=== PATIENT | female | born 1965 | race Caucasian/White ===

== ENCOUNTER 2020-06-14 12:25 | Outpatient (REF) | payer MEDICAID, SELFPAY | END 2020-06-14 12:26 | disposition home or self-care (01) | LOC: HO.LAB 12:25 | PROVIDERS: Visit Provider Internal Medicine | DX: Z20.822 Contact with and (suspected) exposure to COVID-19 (principal) | CPT/HCPCS: 36415; C9803; U0003 ==

== ENCOUNTER 2020-10-04 14:48 | Outpatient (REF) | payer MEDICAID, SELFPAY ==
--- NOTE | ~2020-10-04 | XR_ITS ---
EXAMINATION: CHEST 2 VIEWS CLINICAL INFORMATION: Hyperhidrosis. COMPARISON: None. TECHNIQUE: PA and lateral views of the chest were obtained. FINDINGS: The cardiac silhouette is not enlarged. The mediastinal and hilar contours are unremarkable. There are neither pleural effusions nor pneumothoraces. There are no consolidations. The osseous structures are unremarkable. XR/XR chest 2V IMPRESSION: No evidence for acute disease.
[2020-10-04 15:19] LABS: MANUAL DIFF FLAG NO
[2020-10-04 15:30] LABS: Basophils Percent Auto 0.6 % (0-2); Eosinophils Absolute Auto 0.1 X10*3/uL (0.0-0.4); Eosinophils Percent Auto 1.4 % (0-4); Hematocrit 44.1 % (37-47); Hemoglobin 14.6 g/dl (12.0-16.0); Imm Gran Abs Auto 0.02 X10*3/uL (0.00-0.03); Imm Gran Pct Auto 0.3 % (0.0-0.4); Lymphocytes Percent Auto 30.5 % (20-40); Mean Corpuscular HGB Conc 33.1 g/dl (31.0-35.0); Mean Corpuscular Hemoglobin 29.4 pg (27.0-33.0); Mean Corpuscular Volume 88.9 fL (80-98); Mean Platelet Volume 9.8 fL (9.4-12.3); Monocytes Absolute Auto 0.3 X10*3/uL (0.1-1.2); Monocytes Percent Auto 5.2 % (2-11); Neutrophils Absolute Auto 4.1 X10*3/uL (2.0-8.3); Platelet Count 228 X10*3/uL (160-400); Red Blood Count 4.96 X10*6/uL (4.20-5.50); Red Cell Distribution Width 12.5 % (11.0-16.0); White Blood Count 6.6 X10*3/uL (4.8-10.8)
[2020-10-04 15:43] LABS: C Reactive Protein 0.03 mg/dL (< or = 0.50)
[2020-10-04 16:06] LABS: Thyroid Stimulating Hormone 1.63 uIU/mL (0.32-4.0)
[2020-10-05 08:22] LABS: HIV AB/AG Nonreactive (Nonreactive)
[2020-10-06 19:46] LABS: TS Negative Control Passed; TS Panel A 0; TS Panel B 0; TS Positive Control Passed; TSpotTB Negative (SeeBelow)
== END 2020-10-04 14:49 | disposition home or self-care (01) ==
LOC: HO.LAB 14:48
PROVIDERS: PCP Internal Medicine Geriatric Medicine; Visit Provider Emergency Medicine
DX: R61 Generalized hyperhidrosis (principal); Z11.4 Encounter for screening for human immunodeficiency virus [HIV]
CPT/HCPCS: 36415; 71046; 84443; 85025; 86140; 86481; 87389

== ENCOUNTER 2023-04-04 10:13 | Outpatient (REF) | payer MEDICAID, SELFPAY ==
[2023-04-04 15:17] LABS: Alanine Aminotransferase 11 U/L (0-31); Albumin Level 4.2 g/dL (3.5-5.0); Alkaline Phosphatase 64 U/L (39-117); Anion Gap 11 (12-20); Aspartate Amino Transferase 16 U/L (5-31); Bilirubin Total 0.5 mg/dL (0.0-1.0); Blood Urea Nitrogen 9 mg/dL (9-16); Calcium 9.8 mg/dL (8.4-10.2); Carbon Dioxide 26 mmol/L (22-29); Chloride 109 mmol/L (96-108); Cholesterol 166 mg/dL (<200); Estimated Glomerular Filt Rate > 60; Glucose Fasting 85 mg/dL (60-99); HDL Cholesterol 75 mg/dL (>40); LDL Cholesterol Calculated 83 mg/dL (<100); Sodium 142 mmol/L (135-145); Total Protein 7.4 g/dL (6.5-8.0); Triglycerides 44 mg/dL (<150)
== END 2023-04-04 10:14 | disposition home or self-care (01) ==
LOC: HO.CHCLDS 10:13
PROVIDERS: Visit Provider Internal Medicine Geriatric Medicine
DX: Z00.00 Encounter for general adult medical examination without abnormal findings (principal); E78.00 Pure hypercholesterolemia, unspecified
CPT/HCPCS: 36415; 80053; 80061

== ENCOUNTER 2023-07-02 08:54 | Outpatient (REF) | payer MEDICAID, SELFPAY ==
--- NOTE | ~2023-07-02 | XR_ITS ---
EXAMINATION: XR KNEE, RIGHT CLINICAL INFORMATION: Posterior pain of right knee Patient states pain for months, no injury COMPARISON: None available. TECHNIQUE: Four views of the right knee. FINDINGS: No fracture or joint effusion. Alignment is anatomic. Joint spaces are maintained. No abnormal soft tissue calcification. Question soft tissue fullness posterior to the knee. XR/XR knee RT 4V IMPRESSION: No bony abnormality. Question soft tissue fullness posterior to the knee. Ultrasound of the popliteal fossa could be obtained.
[2023-07-02 11:33] LABS: MANUAL DIFF FLAG NO
[2023-07-02 12:03] LABS: Basophils Percent Auto 0.8 % (0-2); Eosinophils Absolute Auto 0.4 X10*3/uL (0.0-0.4); Eosinophils Percent Auto 7.2 % (0-4); Hematocrit 41.8 % (37.0-47.0); Hemoglobin 13.7 g/dl (12.0-16.0); Imm Gran Abs Auto 0.01 X10*3/uL (0.00-0.03); Imm Gran Pct Auto 0.2 % (0.0-0.4); Lymphocytes Absolute Auto 2.3 X10*3/uL (1.2-4.9); Lymphocytes Percent Auto 43.6 % (20-40); Mean Corpuscular HGB Conc 32.8 g/dl (31.0-35.0); Mean Corpuscular Hemoglobin 29.5 pg (27.0-33.0); Mean Corpuscular Volume 90.1 fL (80.0-98.0); Monocytes Absolute Auto 0.4 X10*3/uL (0.1-1.2); Monocytes Percent Auto 6.7 % (2-11); Neutrophils Absolute Auto 2.2 x10*3/uL (2.0-8.3); Neutrophils Percent Auto 41.5 % (45-73); Platelet Count 240 X10*3/uL (160-400); Red Blood Count 4.64 X10*6/uL (4.20-5.50); Red Cell Distribution Width 12.4 % (11.0-16.0); White Blood Count 5.3 X10*3/uL (4.8-10.8)
[2023-07-02 12:19] LABS: Alanine Aminotransferase 15 U/L (0-31); Albumin Level 4.2 g/dL (3.5-5.0); Alkaline Phosphatase 77 U/L (39-117); Anion Gap 10 (12-20); Aspartate Amino Transferase 17 U/L (5-31); Bilirubin Total 0.4 mg/dL (0.0-1.0); Blood Urea Nitrogen 16 mg/dL (9-16); Carbon Dioxide 29 mmol/L (22-29); Chloride 106 mmol/L (96-108); Estimated Glomerular Filt Rate > 60; Glucose Random 88 mg/dL (60-115); Potassium 4.1 mmol/L (3.3-5.1); Sodium 141 mmol/L (135-145); Total Protein 7.7 g/dL (6.5-8.0)
[2023-07-02 12:37] LABS: TSH reflex Free T4 3.81 uIU/mL (0.32-4.0)
== END 2023-07-02 08:55 | disposition home or self-care (01) ==
LOC: HO.HHCL 08:54
PROVIDERS: Visit Provider Internal Medicine Geriatric Medicine
DX: M25.561 Pain in right knee (principal); R63.4 Abnormal weight loss; F32.A Depression, unspecified; G89.29 Other chronic pain
CPT/HCPCS: 36415; 73564; 80053; 84443; 85025

== ENCOUNTER 2024-04-26 15:01 | Outpatient (REF) | payer MEDICAID, SELFPAY ==
--- NOTE | ~2024-04-26 | MR_ITS ---
EXAMINATION: MR BRAIN WITHOUT CONTRAST CLINICAL INFORMATION: Chronic persistent vertigo. COMPARISON: None available. TECHNIQUE: MRI of the brain was obtained using routine sequences without contrast. FINDINGS: No focal restricted diffusion is demonstrated to suggest acute or subacute cerebral ischemia. No evidence of acute or chronic hemorrhagic products on heme-sensitive imaging. Scattered periventricular and deep white matter T2 FLAIR hyperintensities consistent with mild underlying microangiopathy. Proportional prominence of the ventricles and sulcal spaces without evidence of obstructive hydrocephalus. No abnormal mass effect. No midline shift. Normal appearance of the pituitary gland. Normal positioning of the cerebellar tonsils. Normal arterial and venous vascular flow voids are present. Normal, homogeneous marrow signal. Mucous retention cysts within the right maxillary sinus. Mild mucosal thickening of the paranasal sinuses. Trace right-sided mastoid effusion. No signal abnormalities within the left-sided mastoid. Maintained normal T2 signal within the labyrinthine structures. MR/MR head/brain wo con IMPRESSION: 1. No acute intracranial abnormalities. 2. Mild underlying microangiopathy and generalized cerebral volume loss. Electronically signed by: Mert Pedro DO 05/21/2024 07:45 AM EST
== END 2024-04-26 15:02 | disposition home or self-care (01) ==
LOC: HO.MRI 15:01
PROVIDERS: PCP Internal Medicine Geriatric Medicine; Visit Provider Internal Medicine
DX: R42 Dizziness and giddiness (principal)
CPT/HCPCS: 70551

== ENCOUNTER 2024-10-16 09:25 | Outpatient (REF) | payer MEDICAID, SELFPAY ==
--- OUTSIDE RECORDS SUMMARY | 2024-10-16 10:05 | XMS_ITS | Encounter Summary ---
Author Organization [employer] Address [address] [place] [address] Care Team Providers Care Steam Tender Name Role Phone Name, Marlon [place] Primary Care Provider [phone] Encounter Details Date Type Department Care Team (Late st Contact Info) Description 11/20/2022 Abstract [facility] [address] [place] [address] [phone] NameMarlon MD [address] [place] [phone] Social History Tobacco Use Types Packs/Day Years Used Date Smoking Tobacco: Never Passive Smoke Exposure: Never Smokeless Tobacco: Never PHQ-2 Answer Date Recorded Patient Health Questionnaire-2 Score 0 07/12/2022 Depression Answer Date Recorded Patient Health Questionnaire-2 Score 0 07/12/2022 Comments Unknown Sex and Gender Information Value Date Recorded Sex Assigned at Female 04/10/2022 10:18 AM EDT Legal Sex Female 10:18 AM EDT Gender Identity Female 04/10/2022 10:18 AM EDT Sexual Orientation Straight 04/10/2022 10 :18 AM EDT documented as of this encounter Plan of Treatment Upcoming Encounters Date Type Department Care Team (Late st Contact Info) Description 10/29/2024 3:00 PM EDT Office Visit [facility] D[facility] [address] [place] [address] [phone] Kemi Tucker 02/02/2025 2:30 PM EDT Office Visit [facility] [address] [place] [address] [phone] Marlon Tsai MD [address] [place] [address] [phone] documented as of this encounter Procedures Procedure Name Priority Date/Time Associated Diagnosis Comments HM COLONOSCOPY Routine 03/02/2015 3:30 PM EDT documented in this encounter Results * Hm Colonoscopy (03/02/2015 3:30 PM EDT) Colonoscopy Normal Normal Narrative Jimmy Medellinba - 03/02/2015 3:30 PM EDT Recommended 10 year follow up us Historical Provider HEALTH MAINTENANCE Final Result documented in this encounter Visit Diagnoses Not on filedocumented in this encounter Care Teams Steam Tender Relationship Specialty Start Date End Date Name, MD Marlon [address] [place] [address] PCP - General Family Medicine 09/21/15 documented as of this encounter
--- OUTSIDE RECORDS SUMMARY | 2024-10-16 10:05 | XMS_ITS | Encounter Summary ---
Author Organization [employer] Address [address] [facility] [address] [place] [address] Care Team Providers Care Log Sorter Name Role Phone Name, Marlon [place] Primary Care Provider [phone] Reason for Visit * Reason Onset Date Comments Nurse Triage 09/22/2024 Encounter Details Date Type Department Care Team ([facility] st Contact Info) Description 09/22/2024 Telephone [facility] [address] [place], [place] [phone] Name, MD Marlon [address] [place] [address] Nurse Triage Social History Tobacco Use Types Packs/Day Years Used Date Smoking Tobacco: Former Cigarettes Passive Smoke Exposure: Past Smokeless Tobacco: Former Alcohol Use Standard Drinks/Week Comments Never 0 (1 standard drink = 0.6 oz pur e alcohol) PHQ-2 Answer Date Recorded Patient Health Questionnaire-2 Score 0 07/12/2022 Housing Stability Answer Date Recorded What is your housing situation today? I have jeffrey stevenson 06/03/[address] you li ve. Do you have problems with any of the following? None of the above 06/03/2024 Food Insecurity Answer Date Recorded Within the past 12 months, y ou worried that your food would run out before you got money to buy more: Never True 06/03/2024 Within the past 12 months,th e food you bought just didn't last and you didn't have enough money to get more: Never True Transportation Answer Date Recorded In the past 12 months, has l ack of transportation kept you from medical appts, meetings, work or from getting things needed for daily living? No 06/03/2024 Utilities Answer Date Recorded In the past 12 months, has t he electric, gas, oil or water company threatened to shut off services in your home? No 06/03/2024 Depression Answer Date Recorded Patient Health Questionnaire-2 Score 0 07/12/2022 Internet Access Answer Date Recorded Internet Access Q1 Yes 06/03/2024 Internet Access Q2 Not on file 06/03/2024 Comments Unknown Sex and Gender Information Value Date Recorded Sex Assigned at Female 04/10/2022 10:18 AM EDT Legal Sex Female 10:18 AM EDT Gender Identity Female 04/10/2022 10:18 AM EDT Sexual Orientation Straight 04/10/2022 10 :18 AM EDT documented as of this encounter Miscellaneous Notes * Telephone Encounter - Madisyn Mohamud RN - 09/22/2024 3:28 PM EDT Triage call Pt reports bilateral leg pain and some cramping in the calf and galicia areas and the bottoms of bilateral feet. Pt reports has not been going to the gym for 2 weeks now. Denies injury. Pt is able to ambulate but, must sit down often due to pain. Pt has taken tylenol which helps to relievesome of the pain. Pt has also used Bengay ointment which eases some of the discomfort. Pt denies numbness or a swelling/redness along vein path. Pt does report a small area of swelling on galicia right lower leg. ASK apt with [employer] [facility] 09/26/24 @ 145pm. Insurance is verified as active prior to booking. Pt agrees with disposition. Protocol Used: Leg Pain (Adult) Protocol-Based Disposition: See in Office or Video Visit within 3 Days Video visit not offered Positive Triage Question: * Moderate pain (e.g., interferes with normal activities, limping) and present > 3 days * All higher-acuity triage questions were negative Care Advice Discussed: * Reassurance and Education - Leg Pain * Pain Medicines * Pain Medicines - Extra Notes and Warnings * Reasons To Call Back - Moderate pain (such as limping) lasts more than 3 days - Mild pain lasts more than 7 days - Signs of infection occur (such as spreading redness, warmth, fever) - You become worse * Use a Cold Pack for Pain * Use Heat After 48 Hours for Pain * Telephone Encounter - Sherri Diaz - 09/22/2024 2:51 PM EDT Symptom: Leg Pain - Not From Injury Outcome: Schedule an urgent appointment (within 1 hour) or talk to a nurse or provider soon Reason: Trouble walking The caller accepted this outcome. Contact pt at [phone] documented in this encounter Plan of Treatment Upcoming Encounters Date Type Department Care Team (Late st Contact Info) Description 10/29/2024 3:00 PM EDT Office Visit [facility] [address] [place] [address] Kemi Tucker 02/02/2025 2:30 PM EDT Office Visit [facility] [address] [place] [address] Name, MD Marlon [address] [place] [address] documented as of this encounter Visit Diagnoses Not on filedocumented in this encounter Care Teams Log Sorter Relationship Specialty Start Date End Date Marlon Tsai MD [address] [place] [phone] PCP - General Family Medicine 09/21/15 documented as of this encounter
--- OUTSIDE RECORDS SUMMARY | 2024-10-16 10:05 | XMS_ITS | Encounter Summary ---
Author Organization [employer] Address [address] [facility] [address] [place] [address] Care Team Providers Care Ingot Passer Name Role Phone Name, Marlon [place] Primary Care Provider Encounter Details Date Type Department Care Team (Latest Contact Info) Description 10/13/2024 Travel Social History Tobacco Use Types Packs/Day Years Used Date Smoking Tobacco: Former Cigarettes Passive Smoke Exposure: Past Smokeless Tobacco: Former Alcohol Use Standard Drinks/Week Comments Never 0 (1 standard drink = 0.6 oz pur e alcohol) Depression Answer Date Recorded Patient Health Questionnaire-9 Score 4 10/13/2024 Patient Health Questionnaire-9 Score 4 10/13/2024 Last PHQ-9: Questionnaire Data Not on file 0 10/13/2024 Housing Stability Answer Date Recorded What is [...] Answer Date Recorded Patient Health Questionnaire-2 Score 2 10/13/2024 Internet Access Answer Date Recorded Internet Access [...] Description 10/29/2024 3:00 PM EDT Office Visit [facility] [address] [place] [address] Kemi Tucker 02/02/2025 2:30 PM EDT Office Visit [facility] [address] [place] [address] Name, MD Marlon [address] [place] [address] documented as of this encounter Visit Diagnoses Not on filedocumented in this encounter Additional Health Concerns Assessment Noted Time PHQ-9 Depression Total Score: 4 10/14/19 25 3:02 PM EDT documented as of this encounter Care Teams Ingot Passer Relationship Specialty Start Date End Date NameMarlon MD [address] [place] [phone] PCP - General Family Medicine 09/21/15 documented as of this encounter
--- OUTSIDE RECORDS SUMMARY | 2024-10-16 10:05 | XMS_ITS | Clinical Summary ---
Author Organization [employer] Address [address] [facility] [address] [place] [address] Care Team Providers Care Graphic Illustrator Name Role Phone Name, Marlon [place] Primary Care Provider [phone] Allergies Active Allergy Reactions Criticality Noted Date Comments Ibuprofen Hives 06/28/2006 Other reaction(s): swollen face swelling of face Medications albuterol 108 (90 Base) MCG/ACT inhaler Inhale 2 puffs every 4 (four) hours. As needed for wheezing 2 Active gabapentin (Neurontin) 100 MG capsule Take 1 capsule by mouth at bed time. 1 Active atorvastatin (Lipitor) 20 MG tabletIndication s:High cholesterol TAKE 1 TABLET BY MOUTH EVERY DAY 90 tablet 1 3 Active PARoxetine (Paxil) 30 MG tablet Take 30 mg by mouth in the morning. 3 Active chlorhexidine (Peridex) 0.12 % solution Swish 15 mL morning and night for 1 minute. Spit, do not swallow. Do not eat or drink for 30 minutes following use. 473 mL 4 Active meclizine (Antivert) 25 MG tabletIndication s:Vertigo Take 1 tablet (25 mg) by mouth if needed in the morning, at noon, and at bedtime for dizziness. 60 tablet 4 Active Active Problems Problem Noted Date Diagnosed Date Vertigo 03/11/2024 Assessment & Plan (03/11/2024 12:57 PM EDT): Pt of Dr. Tsai here for a sick visit with c/o acute on chronic vertigo. She reports chronic vertigo. Patient reports she has taken medication for vertigo since she was 35 years old. This time around patient states, her vertigo is not goinf away, now for > 3 weeks. Also c/o associated headaches. Of note patient had a CT of her brain 08/22/2018 that showed: No acute intracranial hemorrhage. On exam today, She has an abnormal tandem walk Plan: PT eval for BPV, Refill her script for Meclizine Given her abnormal tandem walk and association with headaches will proceed with an MRI of brain. Patient to follow up with PCP after testing Acute periodontal abscess 12/26/2023 Symptomatic apical periodontitis 12/04/2023 Class 1 obesity 11/15/2023 Pain of breast 03/23/2023 03/23/2023 Pharyngitis 03/23/2023 03/23/2023 Trochanteric bursitis of right hip 03/23/2023 03/23/2023 High cholesterol 07/12/2022 Restless legs 06/13/2022 Benign paroxysmal positional vertigo 10/25/2015 03/23/2023 Allergic rhinitis 09/21/2015 Asthma 09/21/2015 Renal calculus or stone 08/26/2013 03/23/20 23 Breast lump 11/17/2008 Overview (03/23/2023): Benign. Recurrent problem for the patient that has required drainage multiple times. She follows now the breast Center at [facility]. She was recommended fish oil/vitamin D. Obesity 11/17/2008 03/23/2023 Migraine 05/28/2008 03/23/2023 Overview (03/23/2023): Partial complex seizures?. Accroding to the neurologist notes the patient is likely having basilar migaines, she had a normal 24h EEG. See neurologist in [facility]. Dr. Дмитрий Aguilar III. Cervicalgia 10/18/2006 03/23/2023 Lumbago 10/18/2006 03/23/2023 Depressive disorder 06/28/2006 Encounters Date Type Department Care Team Description 10/13/2024 2:30 PM EDT Office Visit [facility] [address] [place] [address] Marlon Tsai MD High cholesterol (Primary Dx); Screening for colon cancer; Encounter for screening mammogram for malignant neoplasm of breast; Pain of foot, unspecified laterality 10/13/2024 Travel 09/26/2024 Telephone [facility] [address] [place] [address] Brandi Avery NP 09/22/2024 Telephone [facility] [address] [place] [address] Ally Graves MA Chart Prep 09/22/2024 Telephone [facility] [address] [place] [address] Marlon Tsai MD Nurse Triage 08/22/2024 Population Health Risk Score [facility] () [address] [phone] Provider, Population Health Generic from Last 3 Months Immunizations Name Administration Dates Next Due Influenza injectable quadrivalent preservative f ree 03/23/2023 Influenza, IIV3, injectable 06/13/2022, 7 PPD Test 12/27/2010 TD (adult), 2 Lf tetanus tox oid, preservative free, adsorbed 06/28/2006 Td (adult) 06/28/2006 Tdap 03/23/2023,02/01/2012 Social History Tobacco Use Types Packs/Day Years Used Date Smoking Tobacco: Former Cigarettes Passive Smoke Exposure: Past Smokeless Tobacco: Former Tobacco Cessation:Counseling Given: Not Answered Alcohol Use Standard Drinks/Week Comments Never 0 [...] Orientation Straight 04/10/2022 10 :18 AM EDT Last Filed Vital Signs Vital Sign Reading Time Taken Comments Blood Pressure 128/74 10/13/2024 2:40 PM EDT Pulse 60 10/13/2024 2:40 PM EDT Temperature 36.3 ??C (97.3 ??F) 10/13/2024 2:40 PM ED T Respiratory Rate 14 10/13/2024 2:40 PM EDT Oxygen Saturation 98% 10/13/2024 2:40 PM EDT Inhaled Oxygen Concentration - - Weight 80.6 kg (177 lb 9.6 oz) 10/13/2024 2:40 P M EDT Height 154.9 cm (5' 1 ) 10/13/2024 2:40 PM EDT Body Mass Index 33.56 10/13/2024 2:40 PM EDT Plan of Treatment Upcoming Encounters Date Type Department Care Team (Late st Contact Info) Description 10/29/2024 3:00 PM EDT Office Visit [facility] [address] [place] [address] Kemi Tucker 02/02/2025 2:30 PM EDT Office Visit [facility] [address] [place] [address] Name[place] [address] Health Maintenance Due Date Last Done Comments CT Colonography 1965 Dental Oral Exam 1965 Dental Prophylaxis 1965 FIT DNA/Cologuard 1965 FIT 1965 FOBT 1965 Sigmoidoscopy 1965 Hepatitis B Vaccines (1 of 3 - 19+ 3-dose series) 01/13/1984 Pneumococcal Vaccine: 50+ Years (1 of 2 - PCV) 01/13/1984 Zoster Vaccines (1 of 2) 2015 Mammogram 05/03/2023 05/03/2022 COVID-19 Vaccine ( - 2023- season) 2024 10/19/2020, 09/21/2020 Influenza Vaccine (#1) 2024 , 06/13/2022, 03/11/2007 Colonoscopy 03/02/2025 03/02/2015 Colorectal Cancer Screening 03/02/2025 Dental X-Ray: Bitewings 04/05/2025 04/04/2024, 02/19 SDOH Screening 06/03/2025 06/03/2024 Alcohol/Substance Use Screening 10/13/2025 10/13/2024 Depression Screening 10/13/2025 10/13/2024, 10/14/19 Tobacco Screening 10/13/2025 10/13/2024 Dental X-Ray: Full Mouth 12/04/2026 12/04/2023 Lipid Panel 04/04/2028 04/04/2023, 1011/2021, 11/29/2021 Cervical Cancer Screening 09/13/2028 HPV/Cotest 09/13/2028 12/25/2014 Pap Smear 09/13/2028 09/14/2023, 12/25/2014 DTaP/Tdap/Td Vaccines (3 - Td or Tdap) 03/23/2033 03/23/2023, 02/01/2012, 06/28/2006, Additional history exists RSV Patients and Patients Aged 60 years or older (1 - 1-dose 75+ series) 01/13/2040 Hepatitis C Screening Completed 01/22/2015 HIV Screening Completed 10/04/2020 HIB Vaccines Aged Out No longer eligi ble based on patient's age to complete this topic HPV Vaccines Aged Out No longer eligi ble based on patient's age to complete this topic Hepatitis A Vaccines Aged Out No long er eligible based on patient's age to complete this topic IPV Vaccines Aged Out No longer eligi ble based on patient's age to complete this topic Meningococcal Vaccine Aged Out No palma krista eligible based on patient's age to complete this topic RSV under 20 months Aged Out No longe r eligible based on patient's age to complete this topic Rotavirus Vaccines Aged Out No longer eligible based on patient's age to complete this topic Procedures Procedure Name Priority Date/Time Associated Diagnosis Comments BITEWING - SINGLE RADIOGRAPHIC IMAGE Routine 04/04/2024 2:00 PM EDT Full coverage crown needed for root canal-treated tooth PANORAMIC RADIOGRAPHIC IMAGE Routine 12/04/2023 1:00 PM EDT HM PAP/HPV Routine 09/14/2023 2:02 PM EDT LIPID PANEL, STANDARD Routine 04/04/2023 10:20 AM EDT PE (physical exam), annual High cholesterol MAMMOGRAPHY Routine 05/03/2022 [facility] HISTORICAL HIV AB/AG Routine 10/04/2020 3:10 PM EDT COLONOSCOPY Routine 03/02/2015 3:30 PM EDT HEPATITIS C ANTIBODY Routine 01/22/2015 PAP/HPV Routine 12/25/2014 from Last 3 Months or Most Recently Relevant to Health Maintenance Results * HM PAP/HPV (09/14/2023 2:02 PM EDT) Only the most recent of2 resultswithin the time period is included. us Historical Provider HEALTH MAINTENANCE Final Result * Lipid Panel, Standard (04/04/2023 10:20 AM EDT) Triglycerides 44 <150 mg/dL [facility] Comment:Desirable Triglyceri de: less than 150 mg/dLBorderline High Triglyceride 150-199 mg/dLHigh Triglyceride: 200-499 mg/dLVery High Triglyceride: greater than or equal to 5OO mg/dL Cholesterol 166 <200 mg/dL [facility] Comment:Desirable Cholestero l: less than 200 mg/dLBorderline High Cholesterol: 200-239 mg/dLHigh Cholesterol: greater than 239 mg/dL LDL Cholesterol Calculated 83 <100 mg/dL [facility] Comment:Desirable LDL: less than 100 mg/dLNear Optimal/Above Optimal LDL: 110- 129 mg/dLBorderline High LDL: 130-159 mg/dLHigh LDL: 160-189 mg/dLVery High LDL: greater than or equal to 190 mg/dL HDL Cholesterol 75 >40 mg/dL [facility] Comment:Desirable HDL: great er than 40 mg/dL Note: This HDL assay may give artificially low results in patients with liver disease. Blood Venous blood specimen / Unknown 04/04/2023 10:20 AM EDT 04/04/2023 2:55 PM EDT Marlon Tsai MD LAB BLOOD ORDERABLES Final Resul t [facility] [address] [place] [phone] * Mammography (05/03/2022) Mammogram performed Anatomical Region Laterality Modality Other [facility] Provider HEALTH MAINTENANCE Final Result * HIV AB/AG (10/04/2020 3:10 PM EDT) HIV AB/AG Nonreactive Nonreactive [facility] Comment: HIV-1 p24 Ag and/or HIV-1/HIV-2 Ab not detected. ?? A test result that is nonreactive does not exclude the possibility of exposure to or infection with HIV-1 and/or HIV-2. Nonreactive results in this assay for individuals with prior exposure to HIV-1 and/or HIV-2 may be due to antigen and antibody levels that are below the limit of detection of this assay. ?? The [employer] Back End Engineer HIV Ag/Ab Combo assay result and supplemental assay results should be interpreted in conjunction with the patient's clinical presentation, history and other laboratory results. ??If the results are inconsistent with clinical evidence, additional testing is suggested to confirm the result. 10/04/2020 3:10 PM EDT Galindo Pisano MD HISTORICAL/NON ORDERABLE LABS Fi nal Result [facility] [address] * Hm Colonoscopy (03/02/2015 3:30 PM EDT) Colonoscopy Normal Normal Narrative Lisa Medellin - 03/02/2015 3:30 PM EDT Recommended 10 year follow up Historical Provider HEALTH MAINTENANCE Final Result * Hepatitis C Antibody (01/22/2015) Hepatitis C Antibody Nonreactive Blood Marlon Tsai MD HEALTH MAINTENANCE Final Result from Last 3 Months or Most Recently Relevant to Health Maintenance Insurance * Guarantor: Janeen Richards Account Type Relation to Patient Date of Phone Billing Address Personal/Family Self [address] [place] [address] [facility] MEDICAID STAND ADULT * Guarantor: Janeen Richards Account Type Relation to Patient Date of Phone Billing Address Personal/Family Self [address] [facility] [address] [place] [address] * Guarantor: Janeen Richards Account Type Relation to Patient Date of Phone Billing Address Personal/Family Self [address] [facility] [address] [place] [address] Care Teams Graphic Illustrator Relationship Specialty Start Date End Date Name, MD Marlon [address] [place] [address] PCP - General Family Medicine 09/21/15
--- OUTSIDE RECORDS SUMMARY | 2024-10-16 10:05 | XMS_ITS | Encounter Summary ---
Author Organization [employer] Address [address] [place] [address] Care Team Providers Care Jet Operator Name Role Phone Name, Marlon [place] Primary Care Provider [phone] Encounter Details Date Type Department Care Team (Late st Contact Info) Description 03/26/2024 Orders Only [facility] [address] [place] [address] Provider, MD Nadiya Social History Tobacco Use Types Packs/Day Years Used Date Smoking Tobacco: Former Cigarettes Passive Smoke Exposure: Past Smokeless Tobacco: Former Alcohol Use Standard Drinks/Week Comments Never 0 (1 standard drink = 0.6 oz pur e alcohol) PHQ-2 Answer Date Recorded Patient Health Questionnaire-2 Score 0 07/12/2022 Housing Stability Answer Date Recorded What is your housing situation today? I have jeffreyvilla stevenson 04/04/[address] you li ve. Do you have problems with any of the following? None of the above 04/04/2023 Food Insecurity Answer Date Recorded Within the past 12 months, y ou worried that your food would run out before you got money to buy more: Never True 04/04/2023 Within the past 12 months,th e food you bought just didn't last and you didn't have enough money to get more: Never True Transportation Answer Date Recorded In the past 12 months, has l ack of transportation kept you from medical appts, meetings, work or from getting things needed for daily living? No 04/04/2023 Utilities Answer Date Recorded In the past 12 months, has t he electric, gas, oil or water company threatened to shut off services in your home? No 04/04/2023 Depression Answer Date Recorded Patient Health Questionnaire-2 [...] Description 10/29/2024 3:00 PM EDT Office Visit [facility] [address], [place] [phone] Kemi Tucker 02/02/2025 2:30 PM EDT Office Visit [facility] [address] [place] [address] [phone] Name, MD Marlon [address] [place] [phone] documented as of this encounter Procedures Procedure Name Priority Date/Time Associated Diagnosis Comments HM PAP/HPV Routine 09/14/2023 2:02 PM EDT documented in this encounter Results * HM PAP/HPV (09/14/2023 2:02 PM EDT) Historical Provider HEALTH MAINTENANCE Final Result documented in this encounter Visit Diagnoses Not on filedocumented in this encounter Care Teams Jet Operator Relationship Specialty Start Date End Date Name, MD Marlon [address] [place] [phone] PCP - General Family Medicine 09/21/15 documented as of this encounter
--- OUTSIDE RECORDS SUMMARY | 2024-10-16 10:05 | XMS_ITS | Encounter Summary ---
Author Organization [employer] Address [address] [facility] [address], [place] [address] Care Team Providers Care Integrity Manager Name Role Phone Marlon Tsai MD Primary Care Provider [phone] Reason for Referral * Imaging (Routine) - Authorized Specialty Diagnoses / Procedures Referred By Azeem t Referred To Contact Radiology Diagnoses Encounter for screening mammogram for malignant neoplasm of breast Procedures BI Mammogram Screening Tomosynthesis Bilateral NameMarlon MD [address] [place] [address] Phone: tel: fax: [address] Phone: tel: fax: Referral ID Status Reason Start Date Expiration Date V isits Requested Visits Authorized [id number] Authorized 10/13/2024 10/13/2025 1 1 * Consultation (Routine) - Authorized Specialty Diagnoses / Procedures Referred By Azeem t Referred To Contact Gastroenterology Diagnoses Screening for colon cancer Marlon Tsai MD [address] [place] [phone] Phone: tel: fax: [facility] [address] [place], [place] Phone: tel: fax: Referral ID Status Reason Start Date Expiration Date Visits Requested Visits Authorized [id number] Authorized Specialty Services Required 10/14/2024 10/14/2025 6 6 Reason for Visit * Reason Comments Follow-up Encounter Details Date Type Department Care Team ([facility] st Contact Info) Description 10/13/2024 2:30 PM EDT Office Visit [facility] [address] [place] [address] NameMarlon MD [address] [place] [address] High cholesterol (Primary Dx); Screening for colon cancer; Encounter for screening mammogram for malignant neoplasm of breast; Pain of foot, unspecified laterality Social History Tobacco Use Types Packs/Day Years [...] AM EDT documented as of this encounter Last Filed Vital Signs Vital Sign Reading [...] Mass Index 33.56 10/13/2024 2:40 PM EDT documented in this encounter Progress Notes * Marlon Tsai, - 10/13/2024 2:30 PM EDT Subjective Patient ID: Janeen Richards is a 59 y.o. female who presents for Follow-up. Patient comes for a follow-up visit. The patient is in good spirits. She tells me that she is trying to exercise more often. She has been taking salsa classes. She admits she often forgets to use her atorvastatin. On review of health maintenance schedule she is due for a mammogram and a colonoscopy. She recently had Pap smear at [facility]. Review of Systems Constitutional: Negative for chills and fever. HENT: Negative for sore throat. Respiratory: Negative for cough, shortness of breath and wheezing. Cardiovascular: Negative for chest pain, palpitations and leg swelling. Gastrointestinal: Negative for abdominal pain. Visit Vitals BP 128/74 (BP Location: Left arm, Patient Position: Sitting, BP Cuff Size: Large adult) Pulse 60 Temp 97.3 ??F (36.3 ??C) (Temporal) Resp 14 Ht 5' 1 (1.549 m) Wt 177 lb 9.6 oz (80.6 kg) SpO2 98% BMI 33.56 kg/m?? Smoking Status Former BSA 1.86 m?? Objective Physical Exam Constitutional: Appearance: Normal appearance. Cardiovascular: Rate and Rhythm: Normal rate and regular rhythm. Heart sounds: No murmur heard. No gallop. Pulmonary: Effort: Pulmonary effort is normal. No respiratory distress. Breath sounds: Normal breath sounds. No wheezing. Musculoskeletal: Right lower leg: No edema. Left lower leg: No edema. Neurological: Mental Status: She is alert. Assessment/Plan Diagnoses and all orders for this visit: High cholesterol Comments: I recommend to use statin daily for primary prevention of cardiovascular disease. Go for the fasting blood work ordered at her previous visit. Screening for colon cancer Comments: Referral to GI for colonoscopy. Last colonoscopy was normal 10 years ago at [facility]. Orders: - Referral to Gastroenterology; Future Encounter for screening mammogram for malignant neoplasm of breast Comments: Referral to mammogram. Patient is interested in referral to [facility]. Previous mammograms done at [facility]. Her last mammogram 05/03/2002 at [facility] was BI-RADS 1. Orders: - BI Mammogram Screening Tomosynthesis Bilateral; Future Pain of foot, unspecified laterality Comments: At the end of the visit she complained of foot pain when she stands for long period. No history of trauma. Likely plantar fasciitis. I recommended to avoid walking barefoot. I showed her some exercises she can do at home. documented in this encounter Plan of Treatment Upcoming Encounters Date Type Department Care Team (Late st Contact Info) Description 10/29/2024 3:00 PM EDT Office Visit [facility] [address] [place] [address] Kemi Tucker 02/02/2025 2:30 PM EDT Office Visit [facility] [address] [place] [address] Marlon Tsai MD [address] [place] [address] Scheduled Orders Name Type Priority Associated Diagnoses Orde r Schedule BI Mammogram Screening Tomosynthesis Bilateral Imaging Routine Encounter for screening mammogram for malignant neoplasm of breast Expected: 10/13/2024, Expires: 12/13/2025 Scheduled Referrals Name Type Priority Associated Diagnoses Order Schedule Referral to Gastroenterology Outpatient Referral Routine Screening for colon cancer Expected: 10/13/2024 (Approximate), Expires: 10/13/2025 documented as of this encounter Visit Diagnoses Diagnosis High cholesterol- Primary Pure hypercholesterolemia Screening for colon cancer Special screening for malignant neoplasms, colon Encounter for screening mammogram for malignant neoplasm of breast Pain of foot, unspecified laterality documented in this encounter Additional Health Concerns Assessment Noted Time PHQ-9 Depression Total Score: 4 10/14/19 25 3:02 PM EDT documented as of this encounter Care Teams Integrity Manager Relationship Specialty Start Date End Date Name, MD Marlon [address] [place] [phone] PCP - General Family Medicine 09/21/15 documented as of this encounter
[2024-10-16 14:26] LABS: Alanine Aminotransferase 11 U/L (0-31); Albumin Level 4.1 g/dL (3.5-5.0); Alkaline Phosphatase 73 U/L (39-117); Anion Gap 11 (12-20); Aspartate Amino Transferase 19 U/L (5-31); Bilirubin Total 0.8 mg/dL (0.0-1.0); Blood Urea Nitrogen 11 mg/dL (9-16); Calcium 9.8 mg/dL (8.4-10.2); Carbon Dioxide 28 mmol/L (22-29); Chloride 107 mmol/L (96-108); Cholesterol 242 mg/dL (<200); Estimated Glomerular Filt Rate > 60; Glucose Random 86 mg/dL (60-115); HDL Cholesterol 71 mg/dL (>40); LDL Cholesterol Calculated 156 mg/dL (<100); Sodium 142 mmol/L (135-145); Total Protein 7.2 g/dL (6.5-8.0); Triglycerides 76 mg/dL (<150)
== END 2024-10-16 09:26 | disposition home or self-care (01) ==
LOC: HO.CHCLDS 09:25
PROVIDERS: Visit Provider Internal Medicine Geriatric Medicine
DX: Z00.00 Encounter for general adult medical examination without abnormal findings (principal); Z13.220 Encounter for screening for lipoid disorders
CPT/HCPCS: 36415; 80053; 80061